=== PATIENT | female | born 1975 | race Asian ===

== ENCOUNTER 2023-05-08 18:34 | Emergency (ER) | payer MEDICAID ==
[~2023-05-08] VITALS: Ht 167.6 cm; Wt 54.4 kg
[2023-05-08 18:45] VITALS: BP_SYST 130; PULSE 119; RESP 22; TEMP 98.3; O2SAT 97
[2023-05-08] MEDS ORDERED: IPRATROPIUM/ALBUTEROL SULFATE 3 ML AMPUL.NEB (DUONEB) INH ONE ×2 (19:00→20:15)
[2023-05-08] MEDS ORDERED: methylPREDNISolone SOD SUCC/PF 62.5 MG/ML VIAL IVP ONE ×2 (19:00→23:15)
[2023-05-08 19:43] LABS: BASOPHILS % (AUTO) 0.4 % (0.0-2.0); EOSINOPHILS # (AUTO) 0.2 K/uL (0.0-0.4); EOSINOPHILS % (AUTO) 2.1 % (0.0-4.0); HEMOGLOBIN 13.3 g/dL (12.0-16.0); LYMPHOCYTES # (AUTO) 1.1 K/uL (1.0-5.5); LYMPHOCYTES % (AUTO) 10.4 % (20.5-51.5); MEAN CORPUSCULAR HEMOGLOBIN 31 pg (27-31); MEAN CORPUSCULAR HGB CONC 33 % (32-36); MEAN CORPUSCULAR VOLUME 93 fL (79.0-98.0); MONOCYTES # (AUTO) 0.6 K/uL (0.0-1.0); MONOCYTES % (AUTO) 5.7 % (1.7-9.3); NEUTROPHILS # (AUTO) 8.9 K/uL (1.8-7.7); NEUTROPHILS % (AUTO) 81.4 % (40.0-70.0); PLATELET COUNT (AUTO) 342 K/uL (130-430); RED BLOOD CELL COUNT(AUTO) 4.33 MIL/uL (4.2-6.2); RED CELL DISTRIBUTION WIDTH 12.6 % (9.0-15.0); WHITE BLOOD COUNT (AUTO) 10.9 K/uL (4.8-10.8)
[2023-05-08 20:14] LABS: ALANINE AMINOTRANSFERASE 16 U/L (12-78); ALBUMIN 3.6 g/dL (3.4-4.8); ANION GAP 7 (5-15); ASPARTATE AMINOTRANSFERASE 29 U/L (10-37); CALCIUM 8.7 mg/dL (8.4-11.0); CHLORIDE 100 mmol/L (98-107); CREATININE 0.73 mg/dL (0.55-1.30); GFR AFRICAN AMERICAN 109 mL/min (>90); GLUCOSE 127 mg/dL (74-106); TOTAL BILIRUBIN 0.4 mg/dL (0.0-1.0); UREA NITROGEN, BLOOD 22 mg/dL (8-21)
[2023-05-08] MEDS ORDERED: PRED20TA PO (21:58)
[2023-05-08] MEDS ORDERED: ALBMDI INH (21:58)
[2023-05-08] MEDS ORDERED: GUAI100S14 PO (21:58)
[2023-05-08] MEDS ORDERED: BENZ100C92 PO (21:58)
[2023-05-08] MEDS ORDERED: NACL 0.9% 1,000 ML IV ONE (22:15)
[2023-05-09 00:14] VITALS: BP_SYST 114; PULSE 102; RESP 18; TEMP 98.3; O2SAT 98
== END 2023-05-09 00:14 | disposition home or self-care (01) ==
LOC: SED 18:34
DX: J44.9 Chronic obstructive pulmonary disease, unspecified (principal); J40 Bronchitis, not specified as acute or chronic; R06.02 Shortness of breath; R07.9 Chest pain, unspecified; R05.9 Cough, unspecified; Z79.899 Other long term (current) drug therapy; Z20.822 Contact with and (suspected) exposure to COVID-19
CPT/HCPCS: 99285; 96374; 71045; 96361; 87426; 80053; 85025; 84484; 36415; 93005; 94640; 96376; 87804 ×2; J2930; J7030